=== PATIENT | male | born 1990 | race Two or more races ===

== ENCOUNTER → 2018-08-16 | Emergency (ER) | payer SELFPAY ==
[~2018-08-16] VITALS: Ht 177.8 cm; Wt 71.7 kg
[2018-08-16 15:43] VITALS: BP 120/74
--- NOTE | 2018-08-16 15:55 | NUR ---
ED Nurse Note:pt states that he doesnt want to see the md anymore. desires to leave without being seen. 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 pt back to wr to wait for friend being seen in ed.
--- NOTE | 2018-08-16 18:37 | Emergency Room Report ---
History of Present Illness General Chief Complaint: Skin Rash/Abscess Source: Patient Present Illness HPI Patient left without being seen. Allergies: Coded Allergies: No Known Allergies (Unverified , 08/16/18) Patient History Past Medical History: see triage record Reviewed Nursing Documentation: PMH: Agreed; PSxH: Agreed Nursing Documentation-PMH Past Medical History: No Stated History Review of Systems All Other Systems: negative except mentioned in HPI Physical Exam Vital Signs Date Time Temp Pulse Resp B/P (MAP) Pulse Ox O2 Delivery O2 Flow Rate FiO2 08/16/18 15:43 97.9 126 18 120/74 97 Room Air Sp02 EP Interpretation: reviewed, normal Medical Decision Making PA Attestation Dr. Yanes is my supervising Physician whom patient management has been discussed with. Diagnostic Impression: Primary Impression: Patient left without being seen ER Course Patient left without being seen. Last Vital Signs Date Time Temp Pulse Resp B/P (MAP) Pulse Ox O2 Delivery O2 Flow Rate FiO2 08/16/18 15:43 97.9 126 18 120/74 97 Room Air Disposition: LEFT W/OUT BEING SEEN Condition: Unknown Referrals: NOT CHOSEN IPA/,REFERRING (PCP) Moreno Tesfaye Aug 16, 2018 18:37
== END | disposition home or self-care (01) ==
LOC: EMR 16:23
DX: R21 Rash and other nonspecific skin eruption (principal); Z53.21 Procedure and treatment not carried out due to patient leaving prior to being seen by health care provider